=== PATIENT | male | born 1995 | race Caucasian/White ===

== ENCOUNTER 2017-02-22 17:08 | Emergency (ER) | payer SELFPAY ==
[2017-02-22 17:16] VITALS: BP 123/82; PULSE 78; RESP 20; TEMP 98.1
--- NOTE | 2017-02-22 17:22 | ED ---
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 He reports he went home with vomiting and fever 2 days ago, and at thsi time is feeling much better. No recent vomiting, fever, or abdominal pain. Patient denies any recent fever, chills, shortness of breath, chest pain, back pain, abdominal pain, nausea vomiting, numbness or tingling, dysuria or hematuria, constipation or diarrhea, headaches or visual changes, or any other current symptoms - Related Data Home Medications Medication Instructions Recorded Confirmed No Known Home Medications [No 07/31/16 07/31/16 Known Home Medications] Allergies Allergy/AdvReac Type Severity Reaction Status Date / Time iodine Allergy Rash/Hives Verified 02/22/17 17:15 Review of Systems ROS Statement: Those systems with pertinent positive or pertinent negative responses have been documented in the HPI. ROS Other: All systems not noted in ROS Statement are negative. Past Medical History Past Medical History: No Reported History History of Any Multi-Drug Resistant Organisms: None Reported Past Surgical History: No Surgical Hx Reported Past Psychological History: No Psychological Hx Reported Smoking Status: Current every day smoker Past Alcohol Use History: Occasional Past Drug Use History: None Reported General Exam - General Exam Comments Initial Comments: Well-appearing 21-year-old male. No distress. General: Well appearing, well nourished, in no distress. Oriented x 3, normal mood and affect . Ambulating without difficulty. Skin: Good turgor, no rash, unusual bruising or prominent lesions Hair: Normal texture and distribution. HEENT: Head: Normocephalic, atraumatic, no visible or palpable masses, depressions, or scaring. Eyes: Visual acuity intact, conjunctiva clear, sclera non-icteric, EOM intact, PERRL. Ears: EACs clear, TMs translucent & cone of light visualized. hearing intact. Nose: No external lesions, mucosa non-inflamed, septum and turbinates normal Mouth: Mucous membranes moist, no mucosal lesions. Teeth/Gums: No obvious caries or periodontal disease. No gingival inflammation or significant resorption. Pharynx: Mucosa non-inflamed, no tonsillar hypertrophy or exudate Neck: Supple, without lesions, bruits, or adenopathy, thyroid non-enlarged and non-tender Heart: No cardiomegaly or thrills; regular rate and rhythm, no murmur or gallop Lungs: Clear to auscultation and percussion Abdomen: Bowel sounds normal, no tenderness, organomegaly, masses, or hernia Back: Spine normal without deformity or tenderness, no CVA tenderness Extremities: No amputations or deformities, cyanosis, edema or varicosities, peripheral pulses intact Musculoskeletal: Normal gait and station. No misalignment, asymmetry, crepitation, defects, tenderness, masses, effusions, decreased range of motion, instability, atrophy or abnormal strength or tone in the head, neck, spine, ribs , pelvis or extremities. Neurologic: CN 2-12 normal. Sensation to pain, touch, and proprioception normal. DTRs normal in upper and lower extremities. No pathologic reflexes. Psychiatric: Oriented X3, intact recent and remote memory, judgment and insight , normal mood and affect. Limitations: no limitations General appearance: alert, in no apparent distress Course Vital Signs 02/22/17 17:14 Temperature 98.1 F Pulse Rate 78 Respiratory 20 Rate Blood Pressure 123/82 O2 Sat by Pulse 99 Oximetry Medical Decision Making - Medical Decision Making Asians 21-year-old male needing a return to work note. Patient has no physical symptoms at this time and is fever free. Patient reports that he has not had any vomiting or abdominal pain in the past 24 hours. Patient reports that he wants to return to work note at this time. Patient will be cleared and advised to follow-up with a primary care provider for further symptoms or return to emergency department for any alarming signs or symptoms occur. Patient understands treatment plan will comply. Return parameters were discussed. Disposition Clinical Impression: Well adult exam Disposition: HOME SELF-CARE Condition: Good Instructions: Return to Work Instructions (ED) Additional Instructions: Patient advised to follow-up with primary care provider if symptoms continue to persist. Patient advised the daughter return to work if he feels well enough. Return to emergency department if any alarming signs or symptoms occur. Referrals: Hellen Mahoney MD [STAFF PHYSICIAN] - 1-2 days Time of Disposition: 17:21
== END 2017-02-22 17:31 | disposition home or self-care (01) ==
LOC: EC 17:08
DX: R11.10 Vomiting, unspecified (principal); R50.9 Fever, unspecified; F17.200 Nicotine dependence, unspecified, uncomplicated; Z88.8 Allergy status to other drugs, medicaments and biological substances
CPT/HCPCS: 99283

== ENCOUNTER 2020-06-26 18:47 | Emergency (ER) | payer OTHER ==
[2020-06-26 18:51] VITALS: BP 122/78; PULSE 98; RESP 18; TEMP 97.9
[2020-06-26] MEDS ORDERED: LIDOCAINE 1% INJ 10MG/ML (20 ML MDV) SQ STA (19:05)
[2020-06-26] MEDS ORDERED: DIPH,PERTUS(ACELL)TETVAC-LF 0.5 ML VIAL IM ONE (19:23)
--- NOTE | 2020-06-26 19:37 | ED ---
General Adult HPI - General Chief complaint: Wound/Laceration Stated complaint: lt leg lac Time Seen by Provider: 06/26/20 19:04 Source: patient, RN notes reviewed, old records reviewed Mode of arrival: ambulatory Limitations: no limitations - History of Present Illness Initial comments: 24-year-old male patient presents to ED for evaluation of lacerations left anterior tibial region. Patient was chopping wood with a hatchet when the hatchet slipped off the wood and hit in the left leg. Causing a small laceration. Patient on the date of last tetanus has been ambulatory and leg. Denies any other complaints. Systemic: Pt denies fatigue, fever/chills, rash. Pt denies weakness, night sweats, weight loss. Neuro: Pt denies headache, visual disturbances, syncope or pre-syncope. HEENT: Pt denies ocular discharge or irritation, otalgia, rhinorrhea, pharyngitis or notable lymphadenopathy. Cardiopulmonary: Pt denies chest pain, SOB, heart palpitations, dyspnea on exertion. Abdominal/GI: Pt denies abdominal pain, n/v/d. : Pt denies dysuria, burning w/ urination, frequency/urgency. Denies new onset urinary or bowel incontinence. MSK: Pt denies myalgia, loss of strength or function in extremities. Neuro: Pt denies new onset weakness, paresthesias. - Related Data Home Medications Medication Instructions Recorded Confirmed No Known Home Medications 07/31/16 07/31/16 Allergies Allergy/AdvReac Type Severity Reaction Status Date / Time iodine Allergy Rash/Hives Verified 02/22/17 17:15 Review of Systems ROS Statement: Those systems with pertinent positive or pertinent negative responses have been documented in the HPI. ROS Other: All systems not noted in ROS Statement are negative. Past Medical History Past Medical History: No Reported History History of Any Multi-Drug Resistant Organisms: None Reported Past Surgical History: No Surgical Hx Reported Past Psychological History: No Psychological Hx Reported Past Alcohol Use History: Occasional Past Drug Use History: Marijuana General Exam - General Exam Comments Initial Comments: Constitutional: NAD, AOX3, Pt has pleasant affect. HEENT: NC/AT, trachea midline, neck supple, no notable lymphadenopathy. External ears appear normal, without discharge. Mucous membranes moist. EOM intact. There is no scleral icterus. No pallor noted. Cardiopulmonary: RRR, no murmurs, rubs or gallops, no JVD noted. Lungs CTAB in anterior and posterior hoang. No peripheral edema. Neuro: CN II-XII grossly intact. MSK: 2 cm laceration left midshaft anterior tibia region. Superficial. Vigorously irrigated approximated 2 simple interrupted sutures. Distal pulses intact and equal. Posterior tibialis pulse +2. Full active ROM in upper and lower extremities, 5/5 stregnth. Limitations: no limitations Course Vital Signs 06/26/20 18:48 Temperature 97.9 F Pulse Rate 98 Respiratory 18 Rate Blood Pressure 122/78 O2 Sat by Pulse 97 Oximetry Procedures - Laceration Laceration #1 Consent Obtained: verbal consent Indication: laceration Site: lower extremity (left midshafe anterior tibia) Size (cm): 2 Description: linear Depth: simple, single layer Anesthetic Used: lidocaine 1% Anesthesia Technique: local infiltration Amount (mls): 2 Pre-repair: wound explored, irrigated extensively, deep structures intact Type of Sutures: nylon Size of Sutures: 5-0 Number of Sutures: 2 Patient Tolerated Procedure: well, no complications Medical Decision Making - Medical Decision Making 24-year-old male patient presents to ED for evaluation of left lower leg laceration. Because of the hatchet. Patient went to clean the wound after. Does not date of last tetanus. Patient vital signs are stable, afebrile. Physical exam displayed a 2cm laceration which was irrigated and repaired. Plain film was negative for acute osseous process or foreign body. Patient is ambulatory without difficulty. Patient will be discharged with outpatient follow-up and return precautions. Case discussed with Dr. Lind. Disposition Clinical Impression: Laceration Disposition: HOME SELF-CARE Condition: Stable Instructions (If sedation given, give patient instructions): Care For Your Stitches (ED), Laceration (ED) Additional Instructions: Follow-up with primary care provider in 1-2 days for wound recheck. Please return for suture removal: Extremities: 7-10 days Please monitor for signs and symptoms of infection including: redness, warmth, drainage, discharge. Please return to ED if these signs or symptoms occur, new signs or symptoms develop or if condition worsens in anyway. Is patient prescribed a controlled substance at d/c from ED?: No Referrals: None,Stated [Primary Care Provider] - 1-2 days Mahamed Strickland MD [REFERRING] - 1-2 days
--- NOTE | 2020-06-26 19:44 | XR ---
EXAMINATION TYPE: XR tibia fibula LT DATE OF EXAM: 06/26/2020 COMPARISON: NONE HISTORY: Pain TECHNIQUE: 4 views FINDINGS: Tibia and fibula appear intact. I see no fracture nor dislocation. Knee joint and ankle nikolas nt appear intact. IMPRESSION: Negative left tibia and fibula exam.
== END 2020-06-26 20:11 | disposition home or self-care (01) ==
LOC: EC 18:47
DX: S81.812A Laceration without foreign body, left lower leg, initial encounter (principal); Z23 Encounter for immunization; Z91.048 Other nonmedicinal substance allergy status; W27.8XXA Contact with other nonpowered hand tool, initial encounter; Y93.89 Activity, other specified
CPT/HCPCS: 73590; 90715; 90471; 99283; 12001; J2001

== ENCOUNTER → 2021-09-22 | Outpatient (CLI) | payer OTHER ==
--- NOTE | 2021-09-22 10:36 | XR ---
EXAMINATION TYPE: XR finger RT DATE OF EXAM: 09/22/2021 COMPARISON: NONE HISTORY: Crushing injury this morning with pain TECHNIQUE: 2 views right thumb FINDINGS: No acute fracture or dislocation in the right thumb. Joint spaces are preserved. Overlying soft tissues are unremarkable. IMPRESSION: As above.
== END | disposition home or self-care (01) ==
LOC: RADXRYALE 10:07
PROVIDERS: ATTEND Family Medicine
DX: M79.644 Pain in right finger(s) (principal)